=== PATIENT | female | born 1985 | race Two or more races ===

== ENCOUNTER 2018-11-21 20:49 | Emergency (ER) | payer BC, SELFPAY ==
[2018-11-21 20:50] VITALS: BP 118/73; PULSE 75; RESP 17; TEMP 36.8; O2SAT 100; BMI 28.4
--- NOTE | 2018-11-21 21:08 | EKG12_ITS ---
Test Reason : WEAKNESS Blood Pressure : / mmHG Vent. Rate : 074 BPM Atrial Rate : 074 BPM P-R Int : 166 ms QRS Dur : 082 ms QT Int : 392 ms P-R-T Axes : 046 007 028 degrees QTc Int : 435 ms Normal sinus rhythm Normal ECG Confirmed by MEME RIVERA, CONSUELO ([id number]), restaurant expeditor DALY GUERRA ([id number] on 11/24/2018 8:16:20 AM Referred By: DIVYA Confirmed By:CONSUELO VALENTINE MD
--- NOTE | 2018-11-21 21:08 | RAD_ITS ---
STUDY: X-RAY CHEST REASON FOR EXAM: Female, 33 years old. Short of breath. TECHNIQUE: Single AP portable view of the chest. COMPARISON: None. FINDINGS: The lungs are clear and expanded. There is no demonstrated pleural abnormality. Normal size heart. Normal mediastinum and alana. Normal visualized pulmonary arteries. Normal visualized aortic arch and descending thoracic aorta. Normal visualized thoracic spine. Normal visualized ribs, clavicles, and shoulders. There is no demonstrated abnormality of the visualized soft tissue structures of the upper abdomen. RAD/Chest 1 View (Portable) IMPRESSION: Normal x-ray examination of the chest. Electronically Signed: Vik Bedolla MD at 21:42 EST , Service support ,
--- NOTE | 2018-11-21 21:13 | ED.RN ---
NO OLD EKGS IN MUSE
[2018-11-21] MEDS: 0.9% Normal Saline 1,000 ML 1000 ML IV (21:15)
[2018-11-21 21:26] LABS: Absolute Lymphocyte Count 3.73 X10^3/ul (0.83-4.51); Absolute Neutrophil Count 6.8 X10^3/uL (2.0-7.7); Basophil# 0.03 X10^3/uL; Basophil% 0.3 % (0-1); Eosinophil# 0.11 X10^3/uL; Hematocrit 39.8 % (37-47); Hemoglobin 12.8 g/dl (12.0-15.0); Lymphocyte # 3.73 X10^3/ul (4.0); Lymphocyte % 33.1 % (19-41); Mean Corp Hgb Conc 32.2 g/gl (32-36); Mean Corpuscular Hgb 24.5 pg (27.0-32.0); Mean Corpuscular Volume 76.1 fL (81-99); Mean Platelet Vol. 9.7 fl (6.2-12.0); Monocyte# 0.53 X10^3/uL; Monocyte% 4.7 % (0-10); Neutrophil # 6.84 X10^3/uL (2.7-7.7); Neutrophil % 60.6 % (47-70); Platelet Count 358 K/mm3 (150-450); RBC Distribution Width CV 15.3 % (11.6-14.6); RBC Distribution Width SD 42.6 fl (35.1-43.9); Red Blood Count 5.23 M/mm3 (4.2-5.4); White Blood Count 11.3 K/mm3 (4.4-11.0)
[2018-11-21 21:33] LABS: POSITIVE COUNT NO; POSITIVE DIFFERENTIAL NO; POSITIVE MORPHOLOGY NO
[2018-11-21 21:41] LABS: Anion Gap 14 (5-15); BUN 14 mg/dL (7-18); BUN/Creat Ratio 14.4 RATIO (10-20); Calcium,Total 9.4 mg/dL (8.5-10.1); Chloride 106 mmol/L (98-107); Creatinine, Serum 0.97 mg/dL (0.55-1.02); EST Glomerular Filtration Rate 71 mL/min (>60); Est Glom Filt Rate - Afr Amer 85 mL/min (>60); Estimated Creatinine Clearance 68.88 ml/min; Glucose 111 mg/dL (74-106); Potassium 3.3 mmol/L (3.5-5.1); Sodium Level 139 mmol/L (136-145)
[2018-11-21 21:44] VITALS: BP 115/75; BP 118/70; BP 127/76; PULSE 67; PULSE 70; PULSE 80
[2018-11-21 21:56] LABS: Pregnancy, Serum, hCG Quali. NEGATIVE Negative (0-9 Nonpreg)
--- NOTE | 2018-11-21 22:10 | ED.DCSUM_ITS ---
- ER Visit Summary Date of Service: 11/21/18 Chief Complaint: Near syncope History of Present Illness: The patient is a [address] Bernardo. She reports that approximately 8:00 tonight while working out she began very lightheaded. States that she had been rowing and doing cardio that was more difficult than usual. She states that she became short of breath during this. She denies any chest pain or lightheadedness during this. However, she began lifting weights and began feeling very lightheaded, short of breath, and developed chest heaviness and generalized weakness. States that she felt like she was going to pass out, but did not. Patient does report that she had a small lunch and had not eaten anything prior to this. Physical Examination: Vitals: Stable. Afebrile. General: Well-nourished and well-developed. Head: Normocephalic atraumatic. Neck: Supple, no lymphadenopathy. No JVD. Nontender. Cardiovascular: Regular rate and rhythm. No murmurs. Respiratory: No respiratory distress. Clear to auscultation bilaterally. Abdominal: Soft, nontender, nondistended, normal bowel sounds. No guarding, rebound, or peritoneal signs. Back: Nontender. Extremities: Nontender, no edema. Skin: Normal color, no rash. Neurologic: Alert and oriented ?3. Cranial nerves II through XII are intact. Normal strength and sensation. Psych: Normal affect. Test Results: EKG is sinus at [address] changes. There is normal intervals. CBC is more for white count 11.3. Chem-7 marked potassium 3.3, CO2 of 19, glucose 111. test negative. Chest x-ray is normal. Emergency Department Course and Treatment: Patient ate while here. She was given a liter normal saline. She had orthostatic vital signs that were negative. Treatment Plan: I suspect the patient had a vasovagal episode as the source for her near syncope. She is stable at this time. She will be discharged instructions from her primary care physician 1-2 days not improving. Return to the emergency department for any worsening symptoms. Disposition: To home in improved and stable condition. Impression: 1. Near syncope. This note was generated with [employer] software. It may contain incorrect words, spelling, and punctuation that were not noted in review of the chart prior to signing ED Disposition - Plan for ED Patient: Disposition: Home or Assisted Living Chief Complaint: Weakness Instructions: ED Near Syncope Unkn Referrals: Mukesh Bernardo MD [Primary Care Provider] - 1-2 Days if not improving
[2018-11-21 22:14] VITALS: BP 136/89; PULSE 79; RESP 14; O2SAT 99
== END 2018-11-21 22:14 | disposition home or self-care (01) ==
LOC: ED 21:13
PROVIDERS: Emergency Provider Emergency Medicine; Family Provider Family Medicine; PCP Family Medicine
DX: R55 Syncope and collapse (principal)
CPT/HCPCS: 71045; 80048; 84703; 85025; 93005; 96360; 99285; J7030; A4216

== ENCOUNTER → 2018-11-23 17:08 | Outpatient (CLI) | payer BC, SELFPAY ==
[2018-11-21 20:50] VITALS: BMI 28.4
[2018-11-23 17:54] LABS: D-Dimer Quantitative (DVT/PE) < 0.27 FEU/ug/m (0.27-0.49)
== END ==
PROVIDERS: Family Provider Family Medicine; PCP Family Medicine; Referring Provider Family Medicine; Visit Provider Family Medicine
DX: R07.9 Chest pain, unspecified (principal)
CPT/HCPCS: 36415; 84484; 85379